=== PATIENT | male | born 1995 | race African-American/Black ===

== ENCOUNTER 2017-12-10 13:46 | Emergency (ER) | payer OTHER ==
[~2017-12-10] VITALS: Ht 188 cm; Wt 126.1 kg
[~2017-12-10 13:46] MED LIST: FLOMAX0.4 MG PO; NAPROSYN500 MG PO; ROBAXIN 750 MG750 M1 PO; TRAMADOL 50 MG50 MG
[2017-12-10] MEDS ORDERED: KEFLEX500 M1 PO (14:29)
[2017-12-10 14:47] VITALS: BP 163/102
== END 2017-12-10 14:47 | disposition home or self-care (01) ==
LOC: M.ERS 13:46
DX: S61.012A Laceration without foreign body of left thumb without damage to nail, initial encounter (principal); F17.210 Nicotine dependence, cigarettes, uncomplicated; W26.0XXA Contact with knife, initial encounter; Y93.G3 Activity, cooking and baking; Y92.89 Other specified places as the place of occurrence of the external cause; Y99.8 Other external cause status

== ENCOUNTER 2021-08-08 08:52 | Emergency (ER) | payer OTHER ==
[~2021-08-08] VITALS: Ht 185.4 cm; Wt 154.2 kg
[~2021-08-08 08:52] MED LIST changes: +KEFLEX500 M1 PO
[2021-08-08 10:36] VITALS: BP 154/72
== END 2021-08-08 10:37 | disposition home or self-care (01) ==
LOC: M.ERS 08:52
DX: S81.011A Laceration without foreign body, right knee, initial encounter (principal); Z90.89 Acquired absence of other organs; W10.8XXA Fall (on) (from) other stairs and steps, initial encounter; Y93.89 Activity, other specified; Y92.89 Other specified places as the place of occurrence of the external cause; Y99.8 Other external cause status